=== PATIENT | female | born 1955 | race African-American/Black ===

== ENCOUNTER 2018-10-23 15:02 | Emergency (ER) | payer OTHER ==
[~2018-10-23] VITALS: Ht 165.1 cm; Wt 68.0 kg
[2018-10-23 15:26] VITALS: BP 170/67
[2018-10-23] MEDS ORDERED: HYDROcodone-ACET 7.5/325MG TAB PO ONE (16:15)
== END 2018-10-23 16:43 | disposition home or self-care (01) ==
LOC: ER 15:02
DX: M48.02 Spinal stenosis, cervical region (principal); G43.909 Migraine, unspecified, not intractable, without status migrainosus; G89.29 Other chronic pain; M54.2 Cervicalgia
CPT/HCPCS: 70450; 72125